=== PATIENT | male | born 1955 | race Caucasian/White ===

== ENCOUNTER 2019-03-24 09:31 | Inpatient (IN) ==
[2019-03-24] MEDS ORDERED: ASPIRIN 325 MG TABLET PO ONE (10:14)
[2019-03-24 11:01] LABS: Basophils # 0.1 10*3/uL (0.0-0.2); Eosinophils # 0.3 10*3/uL (0.0-0.87); Eosinophils % 4.9 % (0.00-10.9); Hematocrit 39.7 VOL% (42.0-52.0); Hemoglobin 13.4 GM/DL (14.0-18.0); Immature Granulocytes % 0.2 %; Immature Granulocytes Absolute 0.01 #; Lymphocytes # 1.5 10*3/uL (1.4-4.0); Lymphocytes % 24.7 % (21.2-54.2); Mean Corpuscular HGB Conc 33.8 GM/DL (32-36); Mean Corpuscular Volume 93.9 FL (87-102); Mean Platelet Volume 9.3 FL (9.6-12.0); Monocytes % 8.8 % (1.7-12.7); Neutrophils % 60.4 % (38.7-73.9); Platelet Count 227 T/CUMM (130-400); Red Blood Count 4.23 MC/CUMM (3.8-5.5); Red Cell Distribution Width 13.2 % (9.3-17.3); White Blood Count 6.2 T/CUMM (4-12)
[2019-03-24 11:31] LABS: Calcium 9.1 MG/DL (8.5-10.1); Osmolality,Calculated 282.3 MOS/KG (273-304)
[2019-03-24] MEDS ORDERED: diphenhydrAMINE CAP 25 MG CAPSULE PO ONE (12:00)
[2019-03-24] MEDS ORDERED: DIAZEPAM 5 MG TABLET PO ONE (12:00)
[2019-03-24] MEDS: SODIUM CHLORIDE 0.9% 1,000 ML IV SCH ×2 (12:18→21:15)
[2019-03-24] MEDS ORDERED: LIDOCAINE 1% 20 ML VIAL ONE (12:20)
[2019-03-24] MEDS ORDERED: HEPARIN/NACL 0.9% 2 UNITS/ML 1,000 ML IV ONE (12:20)
[2019-03-24] MEDS ORDERED: MIDAZOLAM 2 MG/2 ML VIAL ONE ×3 (13:09→13:50)
[2019-03-24] MEDS ORDERED: fentaNYL 100 MCG/2 ML VIAL ONE (13:09)
[2019-03-24] MEDS ORDERED: diphenhydrAMINE 50 MG/1 ML VIAL ONE (13:15)
[2019-03-24] MEDS ORDERED: HEPARIN 5,000 UNIT/1 ML VIAL ONE ×2 (13:33→13:50)
[2019-03-24] MEDS ORDERED: HYDROmorphone 2 MG/1 ML VIAL ONE (13:50)
[2019-03-24] MEDS ORDERED: NITROGLYCERIN DRIP 50 MG/250 ML BOTTLE IV ONE (14:01)
[2019-03-24] MEDS ORDERED: HEPARIN/NACL 0.9% 2 UNITS/ML 500 ML IV ONE (14:13)
[2019-03-24] MEDS ORDERED: CLOPIDOGREL 300 MG TABLET ONE (14:25)
[2019-03-24] MEDS ORDERED: ZALEPLON 5 MG CAPSULE PO PRN (14:28)
[2019-03-24] MEDS ORDERED: ONDANSETRON 4 MG/2 ML VIAL IV PRN (14:28)
[2019-03-24] MEDS ORDERED: NITROGLYCERIN SL 0.4 MG TABLET SL PRN ×2 (14:28→14:30)
[2019-03-24] MEDS ORDERED: ACETAMINOPHEN 325 MG TABLET PO PRN (14:28)
[2019-03-24] MEDS ORDERED: POTASSIUM CHLORIDE 10 MEQ TABLET PO PRN (14:30)
[2019-03-24] MEDS: carvediloL 3.125 MG TABLET PO SCH (21:15)
[2019-03-25 05:02] LABS: Basophils % 0.5 % (0.0-0.8); Eosinophils # 0.3 10*3/uL (0.0-0.87); Eosinophils % 4.7 % (0.00-10.9); Hematocrit 35.3 VOL% (42.0-52.0); Hemoglobin 11.8 GM/DL (14.0-18.0); Immature Granulocytes % 0.3 %; Immature Granulocytes Absolute 0.02 #; Lymphocytes # 1.2 10*3/uL (1.4-4.0); Lymphocytes % 19.8 % (21.2-54.2); Mean Corpuscular HGB Conc 33.4 GM/DL (32-36); Mean Corpuscular Volume 94.4 FL (87-102); Mean Platelet Volume 9.9 FL (9.6-12.0); Monocytes % 10.3 % (1.7-12.7); Neutrophils % 64.4 % (38.7-73.9); Platelet Count 186 T/CUMM (130-400); Red Blood Count 3.74 MC/CUMM (3.8-5.5); Red Cell Distribution Width 13.2 % (9.3-17.3); White Blood Count 6.1 T/CUMM (4-12)
[2019-03-25] MEDS: SODIUM CHLORIDE 0.9% 1,000 ML IV SCH (05:15)
[2019-03-25 05:18] LABS: Calcium 8.3 MG/DL (8.5-10.1)
[2019-03-25 08:14] VITALS: BP 137/80
[2019-03-25] MEDS: carvediloL 3.125 MG TABLET PO SCH (08:15)
[2019-03-25] MEDS ORDERED: CLOPIDOGREL 75 MG TABLET PO SCH (09:00)
[2019-03-25] MEDS ORDERED: ATORVASTATIN 80 MG TABLET PO SCH (09:00)
[2019-03-25] MEDS ORDERED: FLUoxetine 10 MG CAPSULE PO SCH (09:00)
[2019-03-25] MEDS ORDERED: FUROSEMIDE 40 MG TABLET PO SCH (09:00)
[2019-03-25] MEDS ORDERED: ISOSORBIDE MONONITRATE 30 MG TABLET PO SCH (09:00)
[2019-03-25] MEDS ORDERED: ASPIRIN EC 81 MG TABLET PO SCH (09:00)
[2019-03-25] MEDS ORDERED: LOSARTAN 25 MG TABLET PO SCH (09:00)
== END 2019-03-25 08:32 | disposition home or self-care (01) | DRG 247 ==
LOC: N.TELES 10:10
PROVIDERS: ADMIT Internal Medicine Cardiovascular Disease; ATTEND Internal Medicine Cardiovascular Disease
PROC: CLCCHCL (ICD-10-PCS; 2019-03-24 14:15)

== ENCOUNTER 2020-02-11 14:02 | Observation (INO) ==
[2020-02-11 14:32] LABS: Basophils # 0.1 10*3/uL (0.0-0.2); Basophils % 0.9 % (0.0-0.8); Eosinophils # 0.3 10*3/uL (0.0-0.87); Eosinophils % 4.4 % (0.00-10.9); Hematocrit 34.8 VOL% (42.0-52.0); Hemoglobin 11.8 GM/DL (14.0-18.0); Immature Granulocytes % 0.3 %; Immature Granulocytes Absolute 0.02 #; Lymphocytes # 1.9 10*3/uL (1.4-4.0); Lymphocytes % 24.4 % (21.2-54.2); Mean Corpuscular HGB Conc 33.9 GM/DL (32-36); Mean Corpuscular Volume 96.7 FL (87-102); Mean Platelet Volume 9.2 FL (9.6-12.0); Monocytes % 8.7 % (1.7-12.7); Neutrophils % 61.3 % (38.7-73.9); Platelet Count 248 T/CUMM (130-400); Red Cell Distribution Width 13.3 % (9.3-17.3); White Blood Count 7.7 T/CUMM (4-12)
[2020-02-11] MEDS ORDERED: ENOXAPARIN 100 MG/ML SYRINGE SUBCUT STA (14:44)
[2020-02-11 14:51] LABS: Albumin 3.6 G/DL (3.4-5.0); Bilirubin,Total 0.4 MG/DL (0.2-1.0); Calcium 8.8 MG/DL (8.5-10.1); Osmolality,Calculated 281.5 MOS/KG (273-304); Total Protein 6.8 G/DL (6.4-8.3)
[2020-02-11] MEDS ORDERED: MORPHINE 4 MG/1 ML VIAL IV PRN (16:00)
[2020-02-11] MEDS ORDERED: ENOXAPARIN 40 MG/0.4 ML SYRINGE SUBCUT SCH (16:00)
[2020-02-11] MEDS ORDERED: diphenhydrAMINE CAP 25 MG CAPSULE PO PRN (16:00)
[2020-02-11] MEDS ORDERED: ALUMINUM/MAGNES/SIMETH MAX STR 30 ML UDCUP PO PRN (16:00)
[2020-02-11] MEDS ORDERED: ONDANSETRON 4 MG/2 ML VIAL IV PRN (16:00)
[2020-02-11] MEDS ORDERED: ZALEPLON 5 MG CAPSULE PO PRN (16:00)
[2020-02-11] MEDS ORDERED: MAGNESIUM SULF RIDER 2 GM in PREMIX 1 EACH IV PRN (16:00)
[2020-02-11] MEDS ORDERED: CALCIUM CARBONATE CHEW 500 MG TABLET PO PRN (16:00)
[2020-02-11] MEDS ORDERED: DOCUSATE SODIUM 100 MG CAPSULE PO PRN (16:00)
[2020-02-11] MEDS ORDERED: MAGNESIUM SULF RIDER 4 GM in PREMIX 1 EACH IV PRN (16:00)
[2020-02-11] MEDS ORDERED: NICOTINE 21 MG/24 HR PATCH TRANSDERM PRN (16:00)
[2020-02-11] MEDS ORDERED: ACETAMINOPHEN 325 MG TABLET PO PRN (16:00)
[2020-02-11] MEDS ORDERED: SIMETHICONE CHEW 125 MG TABLET PO PRN (16:00)
[2020-02-11] MEDS ORDERED: hydrALAZINE 20 MG/1 ML VIAL IV PRN (16:00)
[2020-02-11] MEDS ORDERED: POTASSIUM CHLORIDE 10 MEQ TABLET PO PRN (16:10)
[2020-02-11] MEDS ORDERED: FUROSEMIDE 40 MG TABLET PO PRN (16:10)
[2020-02-11] MEDS ORDERED: NITROGLYCERIN SL 0.4 MG TABLET SL PRN (16:10)
[2020-02-12 06:23] LABS: Basophils # 0.1 10*3/uL (0.0-0.2); Basophils % 1.1 % (0.0-0.8); Eosinophils # 0.4 10*3/uL (0.0-0.87); Eosinophils % 6.3 % (0.00-10.9); Hematocrit 38.3 VOL% (42.0-52.0); Hemoglobin 12.8 GM/DL (14.0-18.0); Lymphocytes # 1.6 10*3/uL (1.4-4.0); Mean Corpuscular HGB Conc 33.4 GM/DL (32-36); Mean Platelet Volume 9.3 FL (9.6-12.0); Monocytes % 9.3 % (1.7-12.7); Neutrophils % 54.3 % (38.7-73.9); Platelet Count 244 T/CUMM (130-400); Red Blood Count 3.99 MC/CUMM (3.8-5.5); White Blood Count 5.6 T/CUMM (4-12)
[2020-02-12 06:44] LABS: Blood Urea Nitrogen 18 MG/DL (7-18); Calcium 9.1 MG/DL (8.5-10.1); Estimated Glom Filtration Rate 100 ML/MIN; Glucose 96 MG/DL (74-106); HDL Cholesterol 54 MG/DL (40-60); Osmolality,Calculated 276.7 MOS/KG (273-304); Risk Ratio 3.46; Triglycerides 111 MG/DL (2-150); Troponin I < 0.015 NG/ML (0.00-0.045); VLDL CHOLESTEROL 22.2 MG/DL
[2020-02-12] MEDS ORDERED: DIAZEPAM 5 MG TABLET PO ONE (07:46)
[2020-02-12] MEDS ORDERED: diphenhydrAMINE CAP 25 MG CAPSULE PO PRN (07:48)
[2020-02-12] MEDS ORDERED: CLOPIDOGREL 300 MG TABLET PO ONE (07:49)
[2020-02-12] MEDS ORDERED: SODIUM CHLORIDE 0.9% 1,000 ML IV SCH (08:00)
[2020-02-12] MEDS ORDERED: carvediloL 3.125 MG TABLET PO SCH (09:00)
[2020-02-12] MEDS ORDERED: TAMSULOSIN 0.4 MG CAPSULE PO SCH (09:00)
[2020-02-12] MEDS ORDERED: CLOPIDOGREL 75 MG TABLET PO SCH (09:00)
[2020-02-12] MEDS ORDERED: ASPIRIN EC 81 MG TABLET PO SCH (09:00)
[2020-02-12] MEDS ORDERED: PANTOPRAZOLE 40 MG TABLET PO SCH (09:00)
[2020-02-12] MEDS ORDERED: SPIRONOLACTONE 25 MG TABLET PO SCH (09:00)
[2020-02-12] MEDS ORDERED: FLUoxetine 10 MG CAPSULE PO SCH (09:00)
[2020-02-12] MEDS ORDERED: ATORVASTATIN 80 MG TABLET PO SCH (09:00)
[2020-02-12] MEDS ORDERED: NITROGLYCERIN DRIP 50 MG/250 ML BOTTLE IV ONE (10:52)
[2020-02-12] MEDS ORDERED: HEPARIN/NACL 0.9% 2 UNITS/ML 1,000 ML IV ONE (10:52)
[2020-02-12] MEDS ORDERED: VERAPAMIL 5 MG/2 ML VIAL ONE (10:52)
[2020-02-12] MEDS ORDERED: LIDOCAINE 1% 20 ML VIAL ONE (10:52)
[2020-02-12] MEDS ORDERED: MIDAZOLAM 2 MG/2 ML VIAL ONE ×2 (11:19→11:31)
[2020-02-12] MEDS ORDERED: fentaNYL 100 MCG/2 ML VIAL ONE (11:19)
[2020-02-12] MEDS ORDERED: ENOXAPARIN 60 MG/0.6 ML SYRINGE ONE (11:29)
[2020-02-12 14:44] VITALS: BP 127/60
== END 2020-02-12 14:52 | disposition home or self-care (01) ==
LOC: N.EDINP 14:02 → N.ED 14:02 → N.TELEN 17:49
PROVIDERS: ADMIT Internal Medicine Cardiovascular Disease; ATTEND Internal Medicine Cardiovascular Disease
PROC: CLCCHCL (ICD-10-PCS; 2020-02-12 11:45)